=== PATIENT | male | born 1970 | race Caucasian/White ===

== ENCOUNTER 2017-08-03 10:21 | Emergency (ER) | payer OTHER ==
[2017-08-03] MEDS: KETOROLAC TROMETHAMINE 10 MG TAB PO (11:00)
== END 2017-08-03 11:56 | disposition home or self-care (01) ==
LOC: M ED 10:21
DX: M54.41 Lumbago with sciatica, right side (principal); I10 Essential (primary) hypertension; Z79.899 Other long term (current) drug therapy; Z88.0 Allergy status to penicillin
CPT/HCPCS: 99283